=== PATIENT | female | born 2000 | race African-American/Black ===

== ENCOUNTER 2020-10-18 14:32 | Emergency (ER) | payer OTHER | END 2020-10-18 15:50 | disposition home or self-care (01) | LOC: CSHERS 14:32 | DX: Z76.0 Encounter for issue of repeat prescription (principal); J45.909 Unspecified asthma, uncomplicated | CPT/HCPCS: 99281 ==

== ENCOUNTER 2021-02-05 10:12 | Emergency (ER) | payer OTHER ==
[2021-02-05] MEDS ORDERED: Acetaminophen 500 MG TAB ONE (10:58)
== END 2021-02-05 11:22 | disposition home or self-care (01) ==
LOC: CSHERS 10:12
DX: S60.221A Contusion of right hand, initial encounter (principal); W22.8XXA Striking against or struck by other objects, initial encounter

== ENCOUNTER 2021-04-16 22:32 | Emergency (ER) | payer OTHER ==
[2021-04-16] MEDS ORDERED: Acetaminophen 325 MG TAB ONE (23:04)
[2021-04-17 16:49] LABS: SARS-CoV-2 PCR by NAA Not Detected (NotDetected)
== END 2021-04-16 23:56 | disposition home or self-care (01) ==
LOC: CSHERS 22:32
DX: J02.9 Acute pharyngitis, unspecified (principal); R06.02 Shortness of breath; R07.89 Other chest pain; J45.909 Unspecified asthma, uncomplicated; Z20.822 Contact with and (suspected) exposure to COVID-19; Z79.899 Other long term (current) drug therapy
CPT/HCPCS: 71045; U0003; U0005